=== PATIENT | female | born 1935 | race Caucasian/White ===

== ENCOUNTER 2020-11-30 08:08 | Emergency (ER) | payer MEDICARE, BC, SELFPAY ==
[2020-11-30] VITALS (9 sets, daily range): BP systolic 68–88; BP diastolic 43–58; PULSE 70–91; RESP 12; TEMP 36.4–36.5; O2SAT 99–100
--- NOTE | ~2020-11-30 | XR_ITS ---
XR chest 1V portable DATE: 11/30/2020 08:42 INDICATION: Respiratory distress TECHNIQUE: Portable AP chest on 11/30/2020 at 0849 hours COMPARISON: None FINDINGS: ET tube in satisfactory position 4.5 cm above dean. Right Port-A-Cath catheter tip overlies superior vena cava. 2 electrodes overlie the lower thoracic s annabelle canal. Diffuse osteopenia. Heart size is normal. No hilar or mediastinal enlargement. Minimal infiltrate or atelectasis is suggested at the lung bases. The lungs otherwise appear clear. N o pleural effusion or pulmonary vascular congestion or pneumothorax. IMPRESSION: Minimal infiltrate or atelectasis at the lung bases Reviewed, dictated and finalized at [facility].
--- NOTE | ~2020-11-30 | CT_ITS ---
EXAMINATION: CT brain wo con DATE: 11/30/2020 09:03 INDICATION: Altered mental status TECHNIQUE: Computed tomography (CT) of the head was performed without intravenous contrast. The mA wa s adjusted according to patient size. Iterative reconstruction technique was employed. Exam dose: 60 5.33 mGy-cm total exam DLP. COMPARISON: None FINDINGS: Bilateral vertebral, basilar and bilateral carotid siphon internal carotid artery calcifica tions. Chronic right basal ganglia lacunar infarct. There is nonspecific diminished attenuation of the cerebral white matter, likely due to chronic small vessel ischemic changes. No intracranial mass lesion or hemorrhage. No midline shift or mass effect effect. No subdural or epi dural hematoma. There is central and cortical cerebral atrophy. No orbital mass lesion. Included paranasal sinuses and the mastoid air cells are normally developed and aerated. No fracture or bone destruction of the cranial vault. IMPRESSION: Cerebral atherosclerosis and chronic small vessel ischemic changes of the cerebral white matter Chronic right basal ganglia lacunar infarct Central and cortical cerebral atrophy No acute intracranial finding Reviewed, dictated and finalized at [facility]. Reviewed, dictated and finalized at [facility].
--- NOTE | 2020-11-30 08:19 | ECG_ITS ---
Measurements Intervals [place] Rate: P: [place]: QRS: QRSD: T: QT: QTc: Interpretive Statements SINUS RHYTHM ANTEROSEPTAL INFARCT, AGE INDETERMINATE BORDERLINE ST-T WAVE ABNORMALITY- INF/LAT LEADS BASELINE ARTIFACT- II, III, AVR, AVF, V1-V2 ABNORMAL ECG Electronically Signed On 11-30-2020 8:56:15 CDT by Reagan Haider D.O.
[2020-11-30] MEDS: SODIUM CHLORIDE 0.9% IV 1,000 ML 999 ML IV CONT ×2 (08:30→10:15)
[2020-11-30] MEDS: PROPOFOL IV EMULSION 100 ML 2.4 MG IV CONT (08:35)
[2020-11-30] MEDS: MIDAZOLAM HCL (*CRX) 2 MG/2 ML VIAL IV PUSH (08:37)
[2020-11-30 08:39] LABS: Base Excess ABG -19.4 mmol/L (0-2); Oxygen Content ABG 17.6 %vol (16.0-22.0); Oxygen Saturation ABG 99.8 % (95-97); Oxyhemoglobin 99.2 % (94-100); PCO2 ABG 24.5 mmHg (35-45); PO2 ABG 428.6 mmHg (75-85); Total Hemoglobin 11.8 g/dL; pH ABG 7.13 (7.35-7.45)
[2020-11-30 08:42] LABS: Hematocrit 35.1 % (35.0-42.0); Hemoglobin 10.7 g/dL (11.7-13.8); Mean Corpuscular HGB Conc 30.5 g/dL (32.0-36.0); Mean Corpuscular Hemoglobin 29.8 pg (27.0-31.0); Mean Corpuscular Volume 97.8 fL (78.0-102.0); Mean Platelet Volume 10.5 fl (9.2-11.8); Platelet Count Result 351 K/mm3 (150-420); Red Blood Count 3.59 M/mm3 (4.20-5.40); Red Cell Distribution Width 14.6 % (11.6-14.4); White Blood Count 14.5 K/mm3 (4.8-10.8)
[2020-11-30 08:44] LABS: Fractional Inspired Oxygen 100 %
[2020-11-30 08:45] LABS: Device VENTILATOR; Modified Allen's Test Pass; Site Drawn RIGHT RADIAL
--- NOTE | 2020-11-30 08:45 | PHAR ---
dosing weight is 80kg per dr. lemus. tls
[2020-11-30 08:49] LABS: Arterial Blood Gas PEEP 5 cmH2O; Arterial Blood Gas Ventilator rate 12 /MIN
[2020-11-30 08:55] LABS: Add Urine Microscopic? YES; Appearance Urine Sl Cloudy (Clear); Bilirubin Urine Negative (Negative); Blood Urine Negative (Negative); Color Urine Yellow (Yellow); Glucose Urine UA Negative (Negative); Ketones Urine Trace (Negative); Leukocyte Esterase Ur 1+ LEU/UL (Negative); Nitrate Urine Positive (Negative); Protein Urine Trace (Negative); Urobilinogen Urine 0.2 mg/dL (0.2-1.0); pH Urine 5.5 (5.0-8.0)
[2020-11-30 09:02] LABS: Bacteria Urine 4+ /hpf; RBC Urine None seen /hpf (0-2); Squamous Epithelial Cell Urine Rare /hpf (Few)
[2020-11-30 09:05] LABS: Band Neutrophils Percent 3 % (0-6); Eosinophils Absolute Manual 0.72 K/mm3 (0.02-0.5); Eosinophils Percent Manual 5 % (1-6); Lymphocytes Absolute Manual 5.51 K/mm3 (1.1-4.5); Lymphocytes Percent Manual 38 % (18-44); Metamyelocytes Percent 2 %; Monocytes Absolute Manual 0.14 K/mm3 (0.1-0.90); Monocytes Percent Manual 1 % (3-9); Myelocytes Percent 1 %; Neutrophils Absolute Manual 7.68 K/mm3 (1.7-7.2); Neutrophils Percent Manual 50 % (46-73); Total Cells Counted 100
[2020-11-30 09:06] LABS: Alanine Aminotransferase 6 U/L (14-59); Albumin Level 3.1 g/dL (3.4-5.0); Alkaline Phosphatase 81 U/L (46-116); Anion Gap 23 mmol/L (8-16); Aspartate Amino Transferase 15 U/L (15-37); Bilirubin,Total 0.8 mg/dL (0.00-1.00); Blood Urea Nitrogen 21 mg/dL (7-18); Calcium 8.7 mg/dL (8.5-10.1); Carbon Dioxide 11 mmol/L (21-32); Chloride 104 mmol/L (98-108); Estimated Glomerular Filt Rate 35; Glucose 318 mg/dL (70-99); Osmolality Calculated 301 mOsm/kg (285-295); Platelet Estimate Adequate (Adequate); Potassium 3.5 mmol/L (3.5-5.1); Sodium 138 mmol/L (136-145); Total Protein 6.8 g/dL (6.4-8.2); Troponin I 11.1 ng/L (0.00-60.4)
[2020-11-30 09:09] LABS: Lipase 55 U/L (73-393)
[2020-11-30 09:10] LABS: INR 1.1; Partial Thromboplastin Time 26.2 SEC (23.90-30.70); Prothrombin Time 11.4 Seconds (9.50-12.10)
[2020-11-30 09:10] LABS: SARS-CoV-2 Ag Negative (Negative)
[2020-11-30 09:13] LABS: D Dimer 3.24 mg/L (0.19-0.50)
[2020-11-30 09:15] LABS: Lactic Acid Reflex 14.5 mmol/L (0.4-2.0)
[2020-11-30] MEDS: SODIUM BICARBONATE 8.4% 150 MEQ in DEXTROSE 5% 1,000 ML 950 ML 50 MEQ IV CONT (09:15)
[2020-11-30 09:18] LABS: CRP 1.1 mg/dL (0.0-0.9)
[2020-11-30] MEDS: ENOXAPARIN 100 MG/ML SYRINGE SUB-Q (09:25)
[2020-11-30 09:26] LABS: Creatine Kinase 183 U/L (26-192)
[2020-11-30 09:26] LABS: NT Pro B Type Natriuretic Pept 223 pg/mL (0-450)
[2020-11-30] MEDS: cefTRIAXone 1 GM VIAL (09:30)
--- NOTE | 2020-11-30 09:53 | ED.SOB ---
HPI - SOB/Dyspnea General Chief Complaint: Shortness of Breath/Dyspnea Stated Complaint: ambulance Source: family and EMS Mode of arrival: EMS Limitations: altered mental status History of Present Illness HPI Narrative: this is an 85-year-old female presents via EMS currently intubated, has a history of lung cancer and treated at the [facility], also a history of a dyskinetic disorder with Parkinson's disease currently seeing a neurologist at the [facility] system. The patient woke up this morning with some dyskinetic syndrome where she was a violently jerking according to her and she was yelling out help me EMS was called to the scene and the patient was in respiratory distress had difficulty with breathing and was intubated. The patient currently intubated and her vital signs blood pressure of 90/49 with a heart rate of 75 currently afebrile. Patient was intubated given Versed and ketamine on the scene. There was no bowel or bladder dysfunction there is no evidence of tongue biting. Patient also with a history of diabetes and currently on metformin and glipizide. MD elicited complaint: shortness of breath Pertinent past history: other ( lung cancer) Onset (ago): hour(s) Context: anxiety Timing: constant Severity: severe Related Data Allergies Allergy/AdvReac Type Severity Reaction Status Date / Time codeine Allergy Severe Anaphylaxis Verified 11/30/20 10:00 Review of Systems Review of Systems: All systems reviewed & are unremarkable except as noted in HPI and below PMFSH Past Medical History Medical History Diabetes mellitus Dyskinetic syndrome Hypothyroidism (acquired) Lung cancer Parkinsons disease Family History Family History Other Hypertension Social History Social History Social History: lives at home with her in nonsmoker and no alcohol use Smoking status: Never smoker Exam Const: General: ill appearing HENMT: Head: normal to inspection Eyes: Pupils: Equal, round and reactive pupils present Neck: Neck: normal visual inspection, no lymphadenopathy and no meningeal signs Resp: Other: currently intubated GI: GI Palp: Yes Soft to palpation Skin: General skin exam: normal color Rashes: no rashes Neuro: General: moves all extremities Extrem: General: no pedal edema Psych: Other: currently intubated Course Course Emergency Course: this is a 85-year-old after reassessment patient currently intubated on the vent had a metabolic acidosis and had received bicarb drip, patient is in the room and reviewed findings with her and patient has an elevated D-dimer in lieu of sending her to a CTA to scan her chest will start on Lovenox discussed this case with [facility] axis line and accepting physician is Dr. Soto. The patient vital signs currently stable blood pressure at 90/50 will repeat ABGs after a vent settings and changes currently the patient has a metabolic acidosis and started on bicarb drip patient had received 2L of normal saline and currently on propofol for sedation while on the vent. With an elevated D-dimer place the patient on Lovenox. MDM - SOB/Dyspnea Lab Data Result diagrams: 11/30/20 08:19 11/30/20 08:19 Labs: Lab Results 11/30/20 11/30/20 11/30/20 Range/Units 08:19 08:19 08:19 WBC 14.5 H (4.8-10.8) K/mm3 RBC 3.59 L (4.20-5.40) M/mm3 Hgb 10.7 L (11.7-13.8) g/dL Hct 35.1 (35.0-42.0) % MCV 97.8 (78.0-102.0) fL MCH 29.8 (27.0-31.0) pg MCHC 30.5 L (32.0-36.0) g/dL RDW 14.6 H (11.6-14.4) % Plt Count 351 (150-420) K/mm3 MPV 10.5 (9.2-11.8) fl Immature Gran % (Auto) Not Reportable Neut % (Auto) Not Reportable Lymph % (Auto) Not Reportable Thayer % (Auto) Not Reportable Eos % (Auto)
[2020-11-30 10:12] LABS: HCO3 ABG 10.8 mmol/L (23-29); Oxygen Content ABG 12.8 %vol (16.0-22.0); Oxygen Saturation ABG 86.6 % (95-97); Oxyhemoglobin 85.8 % (94-100); PCO2 ABG 25.7 mmHg (35-45); PO2 ABG 60.3 mmHg (75-85); Total Hemoglobin 10.6 g/dL; pH ABG 7.24 (7.35-7.45)
[2020-11-30 10:16] LABS: Device VENTILATOR; Fractional Inspired Oxygen 50 %; Modified Allen's Test Unable to perform; Site Drawn RIGHT BRACHIAL
[2020-11-30 10:17] LABS: Arterial Blood Gas PEEP 5 cmH2O; Arterial Blood Gas Tidal Volume 500 ml; Arterial Blood Gas Vent Mode ASSIST CONTROL; Arterial Blood Gas Ventilator rate 12 /MIN
[2020-11-30] MEDS: MIDAZOLAM HCL (*CRX) 5 MG/ML VIAL (10:20)
--- NOTE | 2020-11-30 11:13 | PC.NURSE ---
0820---pt becoming restless. order received for versed 2 mg ivp. 0835---pt transported to CT via nurse, resp staff, and rad staff. no change in monitor pattern during CT. 0855---return to ER from CT. pt becoming restless and kicking out periodically. 0900---[id number] ^, pt having large soft BM. bed change started.
[2020-11-30 11:36] LABS: Reflex Lactic Acid Yes or No Add Lactic
--- NOTE | 2020-11-30 11:36 | PC.NURSE ---
0925---erp at bedside discussing read of care. 0950---face sheet faxed to [facility] after erp spoke with key account coordinator and associate sales manager dr. aragon 1000---report given to lexie ocasio at [facility] ICU 1005---pt becoming more restless, kicking and pulling at tubes. 1010---pt pulled iv out from right wrist. site dressed. pt having large soft BM. bed change started.
--- NOTE | 2020-11-30 11:44 | PC.NURSE ---
1030---ng inserted without difficulty thru left nare. 200ml yellow bile liquid returned via continuous suction. 1033---ng suction changed to intermirttent low suction. no drg at this time.
--- NOTE | 2020-11-30 11:46 | PC.NURSE ---
1040---bed change complete. pt placed in adult protecote. no change in monitor pattern. family at the bedside. 1045---[facility] staff arrival et report given.
== END 2020-11-30 11:30 | disposition short-term general hospital (02) ==
PROVIDERS: Emergency Provider Emergency Medicine; PCP Internal Medicine
DX: J96.00 Acute respiratory failure, unspecified whether with hypoxia or hypercapnia (principal); E87.2 Acidosis; G24.9 Dystonia, unspecified; E03.9 Hypothyroidism, unspecified; G20 Parkinson's disease; E11.9 Type 2 diabetes mellitus without complications; Z85.118 Personal history of other malignant neoplasm of bronchus and lung; Z82.49 Family history of ischemic heart disease and other diseases of the circulatory system; Z20.822 Contact with and (suspected) exposure to COVID-19
CPT/HCPCS: 36415; 36600; 70450; 71045; 80053; 81001; 82550; 82805; 83605; 83690; 83880; 84484; 85025; 85380; 85610; 85730; 86140; 87040; 87077; 87086; 87088; 87186; 87426; 93005; 96361; 96365; 96366; 96367; 96368; 96372; 96375; 99285; C9803; J0696; J1650; J2250; J2704; J7030; J7070